=== PATIENT | female | born 1995 | race Caucasian/White ===

== ENCOUNTER → 2023-10-23 08:24 | Outpatient (CLI) | payer OTHER, SELFPAY ==
--- NOTE | 2023-10-23 08:32 | DI.RAD.S_ITS ---
PROCEDURE: XR CHEST 2V INDICATIONS: CHEST PAIN TECHNIQUE: 2 views of the chest were acquired. COMPARISON: None. FINDINGS: Surgical changes and devices: None. Lungs and pleura: Lungs are clear. No pleural effusions or pneumothorax. Mediastinum: Mediastinal contours are normal. Heart size is normal. Bones and chest wall: No suspicious bony abnormalities. Soft tissues appear unremarkable. IMPRESSION: No acute cardiopulmonary abnormality is seen. Approved by: Jaleel Mcnulty M.D. on 10/23/2023 at 12:50
--- NOTE | 2023-10-23 08:32 | DI.RAD.S_ITS ---
PROCEDURE: XR LUMBAR SPINE 2-3V INDICATIONS: CHEST PAIN TECHNIQUE: 3 views of the lumbar spine were acquired. COMPARISON: Outside Film, MR, MR LUMBAR SPINE WITHOUT CONTRAST, 02/19/2023, 8:30. FINDINGS: Bones: 5 [id number] vertebrae are present. There is normal bony alignment. No vertebral body compression fractures. No suspicious bony lesions. Mild multilevel facet hypertrophy, most notably at the L4-5 level. Soft tissues: Overlying bowel gas pattern is normal. No suspicious soft tissue calcifications. IMPRESSION: 1. Mild spondylosis. 2. No acute osseous abnormality. If symptoms persist or if there is continued clinical concern, cross-sectional imaging such as MRI may be helpful for further evaluation. Approved by: Jaleel Mcnulty M.D. on 10/23/2023 at 12:52
[2023-10-24 06:35] LABS: HSV 2 IGG AB 2.96 index (0.00-0.90)
== END ==
PROVIDERS: Referring Provider Chiropractor; Visit Provider Chiropractor
DX: R07.9 Chest pain, unspecified (principal); B00.9 Herpesviral infection, unspecified; M13.80 Other specified arthritis, unspecified site
CPT/HCPCS: 36415; 71046; 72100; 86695; 86696